=== PATIENT | female | born 1940 | race Caucasian/White ===

== ENCOUNTER 2020-12-23 19:05 | Inpatient (IN) | payer OTHER ==
[~2020-12-23] VITALS: Ht 162.6 cm; Wt 50.3 kg
--- NOTE | ~2020-12-23 | EMS ---
[facility] [address] [place] [address] EMS Patient Care Report Name: PHANI LOPEZ Room #: 461-P ADM IN M.R.#: [id number] Admission: 12/23/20 Attend Phys: Ck Nagel MD Discharge: Date of : 38 Report #: [id number] THIS REPORT FOR: //name// Report Transmitted: 12/28/2020 11:03 EMS Care Summary [place], [place]/[facility] Incident [id number] @ 12/23/2020 18:11 Incident Location [address] [place], [place] [id number] Patient PHANI LOPEZ Female, 80 Years 1940 Patient Address [address] [place], [place] [id number] Patient History Dementia,Alzheimer's, Patient Allergies Sulfa, Patient Medications Atorvastatin, Docusate Sodium, Levothyroxine, Clonazepam, Chief Complaint fall with decrease in mobility Disposition Transported No Lights/Carmel Dispatch Reason Falls Transported To [facility] Narrative 80 y/o female fall pt who can't get up [facility] [address] [place] [address] EMS Patient Care Report Name: PHANI LOPEZ Room #: 461-P ADM IN M.R.#: [id number] Admission: 12/23/20 Attend Phys: Ck Nagel MD Discharge: Date of : 38 Report #: [id number] Upon arrival I got report from fire personnel and staff at the assisted living [place] staff. The pt fell earlier today and refused treatment or transport. The pt reportedly fell in front of the closet falling backwards onto the carpet hitting her head on the floor. No obvious injury was found. the pt was then picked up by family and [place] staff. At this time the pt would not bend at the waste. The pt is A&O x 1 with a GCS of 13. This is her normal according to the daughter who is also her family's DPOA. The pt normally is able to ambulate unassisted with a lpn medical assistant but since her fall hasn't been able to bend at the waist. The pt is confused and hasn't been able to answer any of my questions other than her name. The pt and daughter want her evaluated at the hospital. The pt was picked up by [place] staff, family, and EMS to position the pt on the cot in a position of comfort, secured her to the cot, and loaded the pt into the ambulance. The pt VS were obtained. The pt is not c/o any pain anywhere. The pt's has sensation in her lower extremities after swiping the bottom of her feet. The pt was transported to [place] per family request, The daughter rode in the ambulance to [place] with the pt to keep the pt calm. the pt was transported with out incident or changes with the pt. The pt doesn't take blood thinners or any other kind of blood thinner. The pt was lifted onto the ED bed by EMS and ED staff. EMS gave report and returned to service Initial Vitals @18:46P: 90,BP: 157/90, @18:45P: 88,R: 14,BP: 142/79,Pain: 0/10,GCS: 13,SpO2: 97,Revised Trauma: 12, Assessments @19:00MENTAL:Event Oriented,Person Oriented,Place Oriented,Time Oriented,SKIN:HEENT:Head/Face: No Abnormalities,Neck/Airway: No Abnormalities,LUNG SOUNDS:General: No Abnormalities,ABDOMEN:General: No Abnormalities,PELVIS//GI:No Abnormalities,EXTREMITIES:Capillary Refill: Left Upper: < 2 Sec,Capillary Refill: Right Upper: < 2 Sec,Left Arm: No Abnormalities,Right Arm: No Abnormalities,Left Leg: No Abnormalities,Right Leg: No Abnormalities,PULSE:Radial: 2+ Normal,NEURO:No Abnormalities, Impression Back Pain Procedures @18:59ALS AssessmentResponse: UnchangedSucceeded Timeline 18:09,Call Received 18:09,Dispatch Notified 18:11,Dispatched 18:13,En Route 18:35,On Scene [address] [address] EMS Patient Care Report Name: JOHNPHANI Room #: 461-P ADM IN M.R.#: [id number] Admission: 12/23/20 Attend Phys: Ck Nagel MD Discharge: Date of : 38 Report #: [id number] 18:36,At Patient 18:45,BP: 142/79 M,PULSE: 88,RR: 14 R,SPO2: 97 Ox,ETCO2: ,BG: ,PAIN: 0,GCS: 13, 18:46,BP: 157/90 M,PULSE: 90,RR: R,SPO2: Ox,ETCO2: ,BG: ,PAIN: ,GCS: , 18:49,Depart Scene 18:59,ALS Assessment,Response: UnchangedSucceeded, 19:01,At Destination 19:22,Call Closed Disclaimer v1.1 Copyright 2020 [employer] This EMS Care Summary contains data elements from the applicable legal record (which may be displayed differently). It is designed to provide pertinent information for the following purposes: continuity of care, clinical quality, and state data reporting. The complete legal record is available to ED staff and administrators of the receiving hospital in ES's Patient Tracker. All data is provided "as is."
--- NOTE | ~2020-12-23 | EEG ---
[facility] [place] [address] ELECTROENCEPHALOGRAM Name: PHANI LOPEZ Room #: 461-P ADM IN M.R.#: [id number] Admission: 12/23/20 Attend Phys: Ck Nagel MD Discharge: Date of : 38 Report #: [id number] THIS REPORT FOR: //name// DATE OF SERVICE: 12/29/2020 This patient is being evaluated for jerking movement. The whole EEG was masked by a lot of artifact. Muscle artifact is present making the interpretation of this EEG almost impossible. Photic stimulation is unremarkable. IMPRESSION: This EEG is not interpretable. It is not possible to rule out the possibility of seizure in this patient because the whole EEG is intermixed with muscle artifact and tremor artifact. Thank you very much for this referral. By: 9 8 Elan Dougherty MD /nt
[2020-12-23 19:10] VITALS: BP 147/72
[2020-12-23 20:08] LABS: BASOPHILS 0.3 % (0.0-2.0); HEMATOCRIT 38.4 % (37.0-47.0); HEMOGLOBIN 13.1 gm/dL (12.0-15.0); LYMPHOCYTES 14.7 % (24.0-44.0); MCH 33.3 pg (26.0-34.0); MCV 97.9 fL (80.0-100.0); MONOCYTES 8.1 % (1.0-8.0); PLATELET COUNT 143 thou/uL (150-400); POLYS 76.9 % (36.0-66.0); RBC 3.92 mil/uL (4.20-5.00); RDW 12.7 % (10.5-14.5); WBC 6.5 thou/uL (4.0-11.0)
[2020-12-23 20:09] LABS: URINE BILIRUBIN 1+ (Negative); URINE BLOOD 1+ (Negative); URINE CLARITY CLEAR; URINE COLOR YELLOW; URINE GLUCOSE-RANDOM* NEGATIVE (Negative); URINE KETONES 2+ (Negative); URINE LEUKOCYTES-REFLEX NEGATIVE (Negative); URINE NITRITE-REFLEX NEGATIVE (Negative); URINE PROTEIN (DIPSTICK) NEGATIVE (Negative); URINE SPECIFIC GRAVITY >= 1.030 (1.005-1.035); URINE UROBILINOGEN 0.2 E.U./dl (0.2-1.0)
[2020-12-23 20:12] LABS: ICTOTEST (BILI CONFIRMATORY) Negative (Negative)
[2020-12-23 20:16] LABS: CALCIUM 9.4 mg/dL (8.5-10.1); CREATININE 1.1 mg/dL (0.6-1.0); POTASSIUM 3.9 mmol/L (3.5-5.1)
[2020-12-23 20:26] LABS: ALBUMIN 4.2 g/dL (3.4-5.0); TOTAL BILIRUBIN 0.9 mg/dL (0.2-1.0); TOTAL PROTEIN 7.1 g/dL (6.4-8.2)
[2020-12-23 20:38] LABS: BACTERIA-REFLEX 1-9 Few /HPF (None Seen); CELLULAR CASTS 0-3 Few /LPF (None Seen); CRYSTALS None Seen /LPF (None Seen); HYALINE CASTS >10 Many /LPF (None Seen); MUCUS 4-6 Moderate strn/LPF (None Seen); SQUAMOUS 4-10 Moderate /LPF (0-3); URINE RBC 1-2 Rare /HPF (NONE SEEN); URINE WBC-REFLEX 0-5 Rare /HPF (0-5)
[2020-12-23] MEDS ORDERED: SEROQUEL 100 M100 M1 PO (23:16)
[2020-12-23] MEDS ORDERED: MIRALAX119 GM PO (23:16)
[2020-12-23] MEDS ORDERED: QUETIAPINE FUMA50 MG PO (23:17)
[2020-12-23] MEDS ORDERED: DESYREL150 MG PO (23:17)
[2020-12-23] MEDS ORDERED: VITAMIN B-121000 MC2 PO (23:18)
[2020-12-23] MEDS ORDERED: ATIVAN1 M1 PO (23:19)
[2020-12-23] MEDS ORDERED: DULCOLAX10 MG RECTAL (23:19)
[2020-12-23] MEDS ORDERED: LIPITOR10 MG PO (23:20)
[2020-12-23] MEDS ORDERED: CALCIUM 600 MG1 EACH PO (23:21)
[2020-12-23] MEDS ORDERED: COLACE100 MG PO (23:22)
[2020-12-23] MEDS ORDERED: CLONAZEPAM 0.50.5 M1 PO (23:22)
[2020-12-23] MEDS ORDERED: ARICEPT10 M1 PO (23:23)
[2020-12-23] MEDS ORDERED: LEXAPRO20 MG PO (23:24)
[2020-12-23] MEDS ORDERED: SYNTHROID88 MC1 PO (23:24)
[2020-12-24 06:51] VITALS: BP 126/59
--- NOTE | 2020-12-24 07:29 | NUR ---
REPORT ATTEMPTED TO CALL X3. AWAITING CALL BACK FROM FLOOR.
[2020-12-24 07:38] VITALS: BP 126/59
--- NOTE | 2020-12-24 08:18 | EKG ---
[address] [place] [address] ELECTROCARDIOGRAM REPORT Name: PHANI LOPEZ Room #: 460-P ADM IN M.R.#: [id number] Admission: 12/23/20 Attend Phys: Ck Nagel MD Discharge: Date of : 38 Report #: [id number] [facility] ED Test Date: 2020-12-23 Test Time: 19:42:03 Pat Name: PHANI LOPEZ Department: Room: [facility] Gender: F Construction Person: JOHNNY : 1940 Requested By: Sukhdev Bryant Order Number: [id number] MD: Bruno Ramirez Measurements Intervals [place] Rate: 78 P: 65 WY: 168 QRS: -32 QRSD: 100 T: 17 QT: 420 QTc: 479 Interpretive Statements Sinus rhythm Left axis deviation Low voltage, extremity leads No previous ECG available for comparison Electronically Signed On 12-24-2020 8:17:50 CDT by Bruno Ramirez [email or web address] <ELECTRONICALLY SIGNED> By: Bruno Ramirez MD, [facility] 12/24/20816 41 194 Bruno Ramirez MD, FACC /EPI
[2020-12-24 08:23] VITALS: BP 149/62
--- NOTE | 2020-12-24 11:38 | NUR ---
ADMISSION NOTE: PT ADMITTED IN ROOM 460, ALERT TO SELF, DISORIENTED X2, DENIES ANY CHEST APIN, NAUSEA AND VOMITTING. ON ROOM AIR, NO SIGNS OF DISTRESS NOTED. PT DENIES ANY NUMBNESS AND TINGLING. 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 PT ON PUREED AND NECTAR THICKENED PER ST EVAL, MEDS CRUSHED IN PUDDING. PT DAUGHTER AND CALLED AND UPDATED [facility], ADMISSION COMPLTED PER THEIR INFO GIVEN BY THEM. THEY BOTH STATED PTR HAS AN ADVANCE DIRECTIVE AND PT REQUEST TO BE DNR, COPY OF AD WILL BE SENT UP TODAY. ASSESSMENT COMPLETED, PT SKIN INTACT. FALL PRECAUTIONS IN PLACE. CALL LIGHT IN REACH. DENIES ANY NEEDS EROS, WILL CONTINUE TO MONITOR
--- NOTE | 2020-12-24 14:27 | NUR ---
PT ADMITTED RELATED TO WEAKNESS. CM REVIEWED CHART AND SPOKE WITH CARE TEAM. CM MET WITH PT AND DTR SAL TIAN AT BEDSIDE THIS DAY. PT WAS ALERT TO SELF. PT'S DTR ANSWERED MOST ASSESSMENT QUESTIONS. SHE INDICATE THAT PT HAD BEEN LIVING AT THE [place] IN ASSISTED LIVING. SHE INDICATED THAT PT HAD BEEN INDEPENDENT WITH GAIT MENU PLANNER BUT HAD ASSIST WITH DRESSING AND BATHING. PT AND SPOUSE WHO RESIDES WITH DTR MOVED HERE FROM [place] RECENTLY AND PT MOVED INTO [place] IN SEPTEMBER. DTR INDICATED SHE WOULD BE RECEPTIVE TO POST ACUTE CARE STAY IF NEEDED UPON DC. CM FOLLOWING REGARDING DC PLANNING.
[2020-12-24 15:40] VITALS: BP 146/75
[2020-12-24 20:03] VITALS: BP 176/78
--- NOTE | 2020-12-25 04:06 | NUR ---
Pt. rested quietly during the night when checked on during frequent rounds. She is confused and attemtped to get up oob without calling for help and bed alarm sounded off. She was hard to redirect because of her confusion. She is currently back in the bed with bed alarm is on.
[2020-12-25 07:15] VITALS: BP 166/81
--- NOTE | 2020-12-25 12:24 | NUR ---
CARE TEAM INDICATED THAT NEUROLOGY HAD BEEN CONSULTED. CM MET WITH PT AND SPOUSE AT BEDSIDE THIS DAY. CM PROVIDED THEM A LIST OF SKILLED REHAB FACILITIES TO REVIEW. THEY ASKED TO SPEAK WITH HOSPITALIST SPOUSE INDICATED THAT PT ISN'T SPEAKING TO HIM TODAY. PT DIDN'T SPEAK DURING CM VISIT BUT NURSE INDICATED SHE HAD BEEN SPEAKING THIS AM.
[2020-12-25 20:18] VITALS: BP 161/76
--- NOTE | 2020-12-26 03:38 | NUR ---
Pt. rested quietly at intervals during the night when checked on during frequent rounds. She has attempted to get out of bed a few times during the night sounding off the bed alarm. Assisted up to the bedside comode with one. She is oriented to self only. She offers no c/o pain. Bed alarm is on.
[2020-12-26 08:34] VITALS: BP 147/82
--- NOTE | 2020-12-26 09:21 | NUR ---
ASSUMED PT CARE THIS AM. PT WAS SITTING ON THE CHAIR WITH ALARM ON AT THE NURSES STATION DURING THE BEGINNING OF THE SHIFT. PT IS ALERT TO SELF ONLY AND CONFUSED. PT HAS IV SITE ON LAC SALINE LOCKED. GIVEN CRUSHED MEDS WITH APPLESAUCE. INFORMED DR THAT PT IS IMPULSIVE AND HAS BEEN WANTING TO GET UP ON THE CHAIR AND FELL AT THE ASSISTED LIVING. PT HAS SITTER STARTING AT 0820. PT IS INCONTINENT OF BLADDER AND BOWEL. PT IS ON ROOM AIR. PT TOLERATED DIET AND MEDICATION WELL. WILL CONTINUE TO MONITOR PT. FOLLOW POC.
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
[2020-12-26 16:57] VITALS: BP 157/83
[2020-12-26 19:38] VITALS: BP 138/83
[2020-12-26 20:30] VITALS: BP 138/83
--- NOTE | 2020-12-27 06:14 | NUR ---
PT ATTEMPTED EXITING THE BED MULTIPLE TIMES, SLEPT INTERMITTENTLY, CONTINUES TO BE MONITORED CLOSELY, NO SIGNS OF PAIN OR DISCOMFORT NOTED, COMPLIANT WITH TX, TOLERATED MEDICATIONS WELL, NO ADVERSE REACTION NOTED. WILLL CONTINUE TO MONITOR.
[2020-12-27 07:30] VITALS: BP 169/91
--- NOTE | 2020-12-27 10:07 | NUR ---
ASSUMED PT CARE THIS AM. PT A&OX1. MEDICAITONS TAKEN WITHOUT ISSUE. PATIENT HAS A SITTER IN PLACE. FALL PRECAUTIONS ARE IN PLACE, CALL LIGHT WITHIN REACH. PATIENT IS ON ROOM AIR. PATIENT DENIES PAIN, NUMBNESS, OR TINGLING.
[2020-12-27 11:15] VITALS: BP 158/71
[2020-12-27 16:27] VITALS: BP 134/89
[2020-12-27 20:05] VITALS: BP 187/103
[2020-12-27 21:35] VITALS: BP 147/75
--- NOTE | 2020-12-28 02:20 | NUR ---
PT SLEPT THROUGH THE NIGHT, NO SIGNS OF PAIN OR DISCOMFORT NOTED, ELEVATED BP AT 1950 OBTAINED NEW ORDER RECEIVED, ADMINISTERED, PT TOLERATED TX WELL NO ADVERSE REACTION NOTED. WILL CONTINUE TO MONITOR.
[2020-12-28 04:30] VITALS: BP 155/96
[2020-12-28 07:36] VITALS: BP 169/88
[2020-12-28 16:00] VITALS: BP 150/69
--- NOTE | 2020-12-28 16:44 | NUR ---
CM SPOKE WITH PT'S DTR AND SPOUSE THIS AM AND THEY INDICATED THAT THEY WERE INTERESTED IN HAVING PT ASSESSED FOR ADMISSION TO THE [facility]. THEY ALSO INDICATED THAT THEY WERE POSSIBLE INTERESTED IN LOOKING AT [facility] SINCE THEY HAVE [facility] LTC AND PT WOULD BE ABLE TO TRANSITION TO LTC IF NEEDED IN THE FUTURE. CM FAXED CLINICAL AND SPOKE WITH STAFF AT THE [facility] THE DON TO POSSIBLE DO ONSITE EVAL TOMORROW. REFERRAL SENT TO [facility] THEY RECEIVED IT. CM FOLLOWING REGARING DC PLANNING.
--- NOTE | 2020-12-28 19:56 | NUR ---
ASSUMED PT CARE AT 7AM.PT IN BED ALERT AND ORIENTED TO SELF BUT VERY CONFUSED AND AGITATED. TRYING GETTING OUT OF BED WITHOUT ASSIST. BED AND CHAIR ALARM IN USE. PT TOOK MEDS ORDERED WITH APPLE SAUCE. CUPOLA TAPPER FED PT AT ALL MEALS. GOOD APPETITE NOTED.FAMILY HERE LATER THIS EVENING,UPDATES GIVEN.REPORT OFF TO JOHN RN.
--- NOTE | 2020-12-28 23:20 | NUR ---
ASSUMED CARE OF PT AT 1930. PT IS A&O TO SELF. IS VERY CONFUSED & IMPULSIVE. IS NOT FOLLOWING COMMANDS WELL. WAS ADMINISTERED TRAZADONE, BUT IS STILL RESTLESS. IS ON ROOM AIR. IS UP WITH 1 ASSIST, GB. FALL PRECAUTIONS & HOURLY ROUNDING CONTINUED. PT IS ACROSS FROM NURSE STATION. THIS NURSE CONDUCTS MORE FREQUENT MONITORING FOR THIS PT D/T MENTATION & IMPULSIVENESS. PT IS CURRENTLY LYING IN BEDING RESTLESS. THIS NURSE AT BEDSIDE. CALL LIGHT WITHIN REACH. WILL CONTINUE TO MONITOR.
[2020-12-29 05:28] LABS: HEMATOCRIT 38.4 % (37.0-47.0); HEMOGLOBIN 12.9 gm/dL (12.0-15.0); MCH 33.1 pg (26.0-34.0); MCHC 33.7 g/dL (28.0-37.0); MCV 98.2 fL (80.0-100.0); RBC 3.91 mil/uL (4.20-5.00); RDW 12.6 % (10.5-14.5); WBC 4.6 thou/uL (4.0-11.0)
[2020-12-29 05:51] LABS: CALCIUM 9.7 mg/dL (8.5-10.1); CREATININE 0.8 mg/dL (0.6-1.0); POTASSIUM 3.8 mmol/L (3.5-5.1)
[2020-12-29 07:50] VITALS: BP 157/65
--- NOTE | 2020-12-29 08:20 | NUR ---
Assess due to length of stay. Advanced age 80. Admit with fall. Hx advanced dementia. ST has assessed and pt required puree, nectar liquid diet with swallow precautions and tolerating diet well with intakes 40-100%. Also receives ensure pudding. DNI/DNR code status. Placement pending. Low nutrition risk with appropriate nutrition interventions in place.
--- NOTE | 2020-12-29 10:24 | NUR ---
Patient assessed by this nurse for potential admission to [facility]. Patient disoriented x4. Resting quietly in bed. Generalized tremors observed. Patient appears calm. Staff reporting that patient has been able to rest throughout the night and morning. Staff reports there was an episode of agitation on 12/28/20 but was able to be re-directed and calmed once staff spoke to her and sat with her. Due to current level of cognition, patient would not be able to participate in therapeutic mileau provided on the [facility]. It is believed that patient would benefit better from a memory care placement at this time.
--- NOTE | 2020-12-29 11:35 | NUR ---
ASSUMED PT CARE THIS AM. PT ALERT BUT NOT ORIENTED. THIS MORNING WHEN VITALS WERE TAKEN, PATIENT WAS HAVING NOTICEABLE TREMORS, MORE THAN WHAT WAS NOTICED IN PRIOR SHIFT WITH THIS PATIENT. STERNAL RUB WAS USED TO GET PATIENT TO OPEN HER EYES, BUT PATIENT WAS RELUCTANT TO OPEN HER EYES. PHYSICIAN MADE AWARE OF THESE FINDINGS. MORNING MEDICATION HELD DUE TO SEDATION LEVEL. SPEECH THERAPY EVALUATED PATIENT AND MADE HER NPO. IV PATENT, SALINE LOCKED. FALL PRECUATIONS ARE IN PLACE, CALL LIGHT WITHIN REACH.
--- NOTE | 2020-12-29 16:36 | NUR ---
JW HERRERA AT THE [facility] VISITED PT THIS DAY. PT HAD JUST BEEN SEEN BY ST AND HAD BEEN MADE NPO. NEURO AND PSYC WERE CONSULTED. CM HAD SPOKEN TO PT'S DTR THIS AM AND UPDATED HER. CM SPOKE WITH PT'S SPOUSE AT BEDSIDE THIS AFTERNOON. THEY INDICATED THAT THEY WERE INTERESTED IN PT GOING TO [facility] SKILLED ONCE MEDICALLY STABLE. CM FOLLOWING REGADING DC PLANNING.
[2020-12-29 22:06] VITALS: BP 135/61
[2020-12-30 05:40] LABS: HEMATOCRIT 40.6 % (37.0-47.0); HEMOGLOBIN 13.4 gm/dL (12.0-15.0); MCH 32.6 pg (26.0-34.0); RBC 4.1 mil/uL (4.20-5.00); RDW 12.8 % (10.5-14.5); WBC 6.3 thou/uL (4.0-11.0)
[2020-12-30 06:00] LABS: CALCIUM 9.5 mg/dL (8.5-10.1); POTASSIUM 4.1 mmol/L (3.5-5.1)
--- NOTE | 2020-12-30 07:55 | NUR ---
ASSUMED CARE OF PT AT 1900HRS. PT IS ALERT BUT ONLY ORIENTED TO PERSON. FALL PRECAUTION IN PLACE. PT HAD TREMORS THIS SHIFT; ATIVAN ORDERED AND ADMINISTERED. PT WAS NPO THIS SHIFT. PT WAS INCT THIS SHIFT. PT WAS ABLE TO GET COMFORTABLE AND SLEEP PART OF THE SHIFT. REPORT GIVEN TO AM RN.
[2020-12-30 09:13] VITALS: BP 131/70
[2020-12-30 12:37] VITALS: BP 136/73
[2020-12-30 14:53] LABS: URINE BILIRUBIN NEGATIVE (Negative); URINE BLOOD NEGATIVE (Negative); URINE CLARITY CLEAR; URINE COLOR YELLOW; URINE GLUCOSE-RANDOM* NEGATIVE (Negative); URINE KETONES TRACE (Negative); URINE LEUKOCYTES-REFLEX NEGATIVE (Negative); URINE NITRITE-REFLEX NEGATIVE (Negative); URINE PROTEIN (DIPSTICK) TRACE (Negative); URINE SPECIFIC GRAVITY 1.025 (1.005-1.035)
[2020-12-30 16:00] VITALS: BP 162/85
--- NOTE | 2020-12-30 16:06 | NUR ---
TODAY THIS PT HAS BEEN IN HER CHAIR FOR MOST OF THE DAY WITH MINOR TREMORS ON AND OFF. SHE HAS AWOKEN TO EAT BREAKFAST AND A SMALL AMOUNT OF LUNCH BUT OTHERWISE STATED SHE WAS TIRED AND FELL BACK TO SLEEP. SHE HAS A PURWICK AT THE MOMENT AND NO BM TODAY. SHE HAS BEEN TOLERATING HER NEW FOUND DIET WELL BUT IT DOES TAKE EXTRA TIME TO FEED HER WELL MOVE HER FROM BED TO CHAIR WITH 2 PERSON ASSIST. FAMILY DID COME AND THEY DID HAVE A MEETING WITH HOSPICE AND SO FAR A DECISION HAS NOT BEEN MADE. SHE OTHERWISE AWAITS FOR THE NEXT PLAN.
--- NOTE | 2020-12-30 16:24 | NUR ---
CM SPOKE WITH PT'S SPOUSE AND DTR TWICE EARLIER TODAY. THEY HAD REACHED OUT TO [facility] AND HAD SET UP INFORMATIONAL VISIT AT 1300 THIS DAY. CM SPOKE WITH POLITICAL ADVISOR AND SENT OVER REFERRAL. LOOKING AT SHORT TERM SKILLED AT SNF AT [facility] VS BACK TO THE [facility] WITH POSSIBLE HOSPICE SERVICES. LEAH SPOKE WITH WJ HERRERA AT THE [facility] AND UPDATED HER AND SENT CLINICAL UPDATED TO [facility]. CM FOLLOWING REGARDNG DC PLANNING. PT PUT ON PUREED DIET AND HONEY THICK LIQUIDS. AWAITING PSYC CONSULT.
[2020-12-30 20:06] VITALS: BP 151/67
--- NOTE | 2020-12-31 02:39 | NUR ---
PT CARE ASSUMED WITH PT IN BED SLEEPING.PT IS ALERT AND ORIENTED TO SELF BUT CONFUSE.PT IS UP WITH X2 ASSIST AND PT IS INCONTINENT TO B/B.PT IS ON PUREED DIET AND NECTAR THICK LIQUID.IV ACCESS ON LT AC WTH D5 AT 80CC/HR.PT IS ON ROOM AIR.WILL CONTINUE TO MONITOR PER POC
[2020-12-31 07:56] VITALS: BP 151/74
[2020-12-31] MEDS ORDERED: LEXAPRO 10 MG T10 M1 PO (11:35)
[2020-12-31] MEDS ORDERED: TRAZODONE HCL50 MG PO (11:35)
--- NOTE | 2020-12-31 14:05 | NUR ---
CARE TEAM INDICATED THAT PT IS MEDICALLY STABLE TO DC TO [facility] THIS DAY. PT'S DTR AND SPOUSE ARE AWARE AND AGREEABLE. CHART COPY MADE. ORDERS FAXED. NURSE GIVEN NUMBER FOR REPORT. VAN TRANSPORT ARRANGED FOR [phone]. NO OTHER CM INTERVENTION INDICATED. CASE CLOSED.
--- NOTE | 2020-12-31 14:23 | NUR ---
TODAY THIS PT IS GERAING UP FOR D/C AND HAS TOLERATED HER MEDICATIONS WELL. SHE HAS HER IV OUT AND HAS BEEN GETTING TURNED IN HER BED EVERY TWO HOURS. LITTLE TO NO TREMORS TODAY AND SHE HAS HAD STABLE VS.
== END 2020-12-31 16:10 | DRG 57 ==
LOC: ER 19:05 → EROBS 23:10 → 4W 23:10
PROVIDERS: Emergency Medicine; Hospitalist; Psychiatry & Neurology Neurology; ADMIT Hospitalist; ATTEND Hospitalist
DX: G30.9 Alzheimer's disease, unspecified (principal); F02.80 Dementia in other diseases classified elsewhere, unspecified severity, without behavioral disturbance, psychotic disturbance, mood disturbance, and anxiety; F32.9 Major depressive disorder, single episode, unspecified; D69.6 Thrombocytopenia, unspecified; Z20.822 Contact with and (suspected) exposure to COVID-19; M81.0 Age-related osteoporosis without current pathological fracture; F41.9 Anxiety disorder, unspecified; G47.00 Insomnia, unspecified; E03.9 Hypothyroidism, unspecified; E78.5 Hyperlipidemia, unspecified; R41.3 Other amnesia; R13.10 Dysphagia, unspecified; R53.81 Other malaise; Z66 Do not resuscitate; Z96.653 Presence of artificial knee joint, bilateral; E86.0 Dehydration; Z90.13 Acquired absence of bilateral breasts and nipples; Z79.899 Other long term (current) drug therapy; Z88.2 Allergy status to sulfonamides; Z88.8 Allergy status to other drugs, medicaments and biological substances; W18.39XA Other fall on same level, initial encounter; Y93.89 Activity, other specified; Y92.89 Other specified places as the place of occurrence of the external cause; Y99.8 Other external cause status
CPT/HCPCS: 10040